=== PATIENT | female | born 1935 | race Caucasian/White ===

== ENCOUNTER → 2016-09-19 | Outpatient (CLI) | payer MEDICARE, OTHER | LOC: GMAB 10:53 | PROVIDERS: ATTEND Family Medicine | DX: C18.9 Malignant neoplasm of colon, unspecified (principal) ==

== ENCOUNTER → 2017-02-05 | Outpatient (CLI) | payer MEDICARE, OTHER | END | disposition home or self-care (01) | LOC: GMAB 10:16 | PROVIDERS: ATTEND Family Medicine | DX: I10 Essential (primary) hypertension (principal) ==

== ENCOUNTER → 2017-07-17 | Outpatient (CLI) | payer MEDICARE, OTHER | END | disposition home or self-care (01) | LOC: GMAB 10:28 | PROVIDERS: ATTEND Family Medicine | DX: C18.9 Malignant neoplasm of colon, unspecified (principal) ==

== ENCOUNTER → 2018-05-23 | Outpatient (CLI) | payer MEDICARE, OTHER | LOC: GMAE 14:39 | PROVIDERS: ATTEND Family Medicine | DX: I10 Essential (primary) hypertension (principal) ==

== ENCOUNTER 2019-10-19 17:52 | Emergency (ER) | payer MEDICARE, OTHER ==
[2019-10-19] MEDS: SODIUM CHLORIDE 0.9% 1000ML 1,000 ML IVS ONE ×2 (18:32→19:44)
[2019-10-19] MEDS: SODIUM CHLORIDE 0.9% (FLUSH) 10 ML SYG IV PRN (18:33)
--- NOTE | 2019-10-19 18:34 | RAD ---
EXAM DESCRIPTION: Chest,1 View CLINICAL HISTORY: 83 years Female sob COMPARISON: 04/16/2017. FINDINGS: The cardiomediastinal silhouette appears unremarkable. Atherosclerotic calcifications in the thoracic aorta. There are diffuse infiltrates in the lungs which could be from edema or an infectious process. No large pleural effusion is identified. No pneumothorax. IMPRESSION: There are diffuse infiltrates in the lungs which could be from edema or an infectious process. Clinical correlation and follow-up recommended. Electronically signed by: Luis Daniel Sánchez MD 10/19/2019 6:32 PM FEDERAL LAW CLERK
[2019-10-19] MEDS ORDERED: PIPERACILLIN/TAZOBACTAM 3.375 GM VIAL IVPB ONE (19:34)
[2019-10-19] MEDS ORDERED: SODIUM CHLORIDE 0.9% 100ML 100 ML IVPB ONE (19:34)
[2019-10-19] MEDS: PIPERACILLIN/TAZOBACTAM 3.375 GM in SODIUM CHLORIDE 0.9% 100ML 100 ML IVPB ONE (19:44)
--- NOTE | 2019-10-19 19:59 | ED.PDOC ---
History of Present Illness - General Chief Complaint: Respiratory Problem Stated Complaint: shortness of breath Time Seen by Provider: 10/19/19 18:16 Source: patient, RN notes reviewed, Vital Signs reviewed, family - Daughter Exam Limitations: no limitations - History of Present Illness Initial Comments: Patient is an 83-year-old white female who presents with complaints of shortness of breath. Patient has had an unremitting cough for days. She is now coughing up blood. It is bright red in nature. Patient shortness of breath is been over 5 days, worsening and no noted swelling. Patient has a history of colon cancer that metastasized to her liver. She underwent chemotherapy and surgery and was considered free and clear cancer x4 years. Recently, it was noted the patient now had spots on her lungs which were presumed to be metastatic in nature. Timing/Duration: constant, getting worse, other - 5 days Severity: moderate Activities at Onset: none Possible Cause: no prior episodes, unknown cause Improving Factors: nothing Worsening Factors: movement Associated Symptoms: cough - With hemoptysis, weakness Respiratory Risk Factors: no cause identified Allergies/Adverse Reactions: Allergies NO KNOWN ALLERGY Allergy (Verified 10/19/19 18:38) Review of Systems - Review of Systems Constitutional: States: see HPI, weakness. Denies: chills, fever EENTM: States: no symptoms reported. Denies: blurred vision, double vision Respiratory: States: see HPI, cough, short of breath. Denies: wheezing Cardiology: States: no symptoms reported. Denies: chest pain, palpitations, syncope Gastrointestinal/Abdominal: States: no symptoms reported. Denies: abdominal pain, diarrhea, nausea, vomiting Genitourinary: States: no symptoms reported. Denies: dysuria, frequency, hematuria Musculoskeletal: States: no symptoms reported. Denies: back pain, joint pain, joint swelling, muscle pain, muscle stiffness Skin: States: no symptoms reported. Denies: change in color, rash Neurological: States: no symptoms reported. Denies: headache, numbness, tingling Endocrine: States: no symptoms reported Hematologic/Lymphatic: States: no symptoms reported All other Systems: Reviewed and Negative Past Medical History (General) - Patient Medical History Hx Stroke: No Hx Congestive Heart Failure: No Hx Diabetes: No Hx Cancer: Yes - Colon and Liver Surgical History: colectomy - Vaccination History Hx Influenza Vaccination: No Hx Pneumococcal Vaccination: No - Social History Hx Tobacco Use: Yes Family Medical History - Family History Mother Family History: Unknown Living Status: Unknown Physical Exam - Physical Exam General Appearance: Alert, Anxious, Frail, Well Developed, Well Groomed, Well Hydrated, Well Nourished Eyes, Ears, Nose, Throat Exam: PERRL/EOMI, pharynx normal, pale conjunctivae (R), pale conjunctivae (L) Neck: non-tender, full range of motion, supple, normal inspection Respiratory: chest non-tender, lungs clear, normal breath sounds, no respiratory distress, no accessory muscle use Cardiovascular/Chest: normal peripheral pulses, no edema, no gallop, no JVD, no murmur, tachycardia Peripheral Pulses: radial,right: 2+, radial,left: 2+ Gastrointestinal/Abdominal: normal bowel sounds, non tender Extremity: normal range of motion, non-tender, normal inspection, no pedal edema, no calf tenderness Neurologic: supply crib attendant II-XII nml as tested, no motor/sensory deficits, alert, normal mood/affect, oriented x 3 Skin Exam: warm/dry, pallor Lymphatic: no adenopathy Progress - Progress Progress: Differential diagnosis: Symptomatic anemia, acute VA, metastatic lung cancer, pneumonia among others. 10/19/19 20:03 Patient presented with shortness of breath. It is rather a mixed picture in regards to her ultimate diagnosis. Chest x-ray appears to be volume overloaded but her BNP is only in the 170s. The potential for pneumonia is there, but there is no white count which points away from pneumonia, but she does have a left shift with 84.6% neutrophils. Additionally patient has an elevated lactic acid at 3.5 and no other source for possible infection except the pneumonia. Additionally patient has new onset renal failure with a BUN of 50 and a creatinine 3.0. After discussion with the patient and her daughter, plan on transfer of patient to [place] for further care. I did discuss this with Dr.Al Orozco, the hospitalist who accepts the patient for transfer. The patient and her daughter voiced understanding and agreement with the plan of care. Patient was given 2 L of normal saline here as well as a dose of Zosyn. Luis Daniel Bush M.D. #[id number] - Results/Orders Results/Orders: EXAM DESCRIPTION: Chest,1 View CLINICAL HISTORY: 83 years Female sob COMPARISON: 04/16/2017. FINDINGS: The cardiomediastinal silhouette appears unremarkable. Atherosclerotic calcifications in the thoracic aorta. There are diffuse infiltrates in the lungs which could be from edema or an infectious process. No large pleural effusion is identified. No pneumothorax. IMPRESSION: There are diffuse infiltrates in the lungs which could be from edema or an infectious process. Clinical correlation and follow-up recommended. Electronically signed by: Luis Daniel Sánchez MD 10/19/2019 6:32 PM ADMITTING MANAGER 10/19/19 18:16 Telemetry .ONCE Sodium Chloride 0.9% (Flush) [Saline Flush Syringe] 10 ml IV PRN PRN Pulse Oximetry Assessment DAILY 10/19/19 18:30 EKG STAT 10/19/19 19:00 BLOOD CULTURE Stat 10/19/19 19:32 Piperacillin/Tazobactam [Zosyn] 3.375 gm Sodium Chloride 0.9% 100Ml [NS (NACL 0.9%) 100ml] 100 ml IVPB ONCE Sodium Chloride 0.9% 1000ML [Ns 1000 ml] 1,000 ml IVS ONCE 10/20/19 09:00 Pulse Ox Daily Laboratory Results - last 24 hr 10/19/19 10/19/19 10/19/19 18:17 18:27 18:27 WBC 8.5 RBC 2.82 L Hgb 9.1 L Hct 27.8 L MCV 98.5 MCH 32.2 H MCHC 32.7 L RDW 20.2 H Plt Count 185 MPV 10.3 Absolute Neuts (auto) 7.40 H Absolute Lymphs (auto) 0.70 L Absolute Monos (auto) 0.30 Absolute Eos (auto) 0.00 Absolute Basos (auto) 0.10 Neutrophils % 86.4 H Lymphocytes % 8.7 L Monocytes % 4.1 Eosinophils % 0.0 L Basophils % 0.8 Normal RBC Morphology 3+aniso PT INR PTT (SP) Sodium 132 L Potassium 4.1 Chloride 102 Carbon Dioxide 16 L Anion Gap 18.1 H BUN 50 H Creatinine 3.00 H BUN/Creatinine Ratio 16.7 Random Glucose 195 H Serum Osmolality 283.2 Lactic Acid Calcium 8.1 L Total Bilirubin 1.1 H AST 51 H ALT 21 Alkaline Phosphatase 50 B-Natriuretic Peptide 170.0 H Serum Total Protein 5.8 L Albumin 2.7 L Globulin 3.1 Albumin/Globulin Ratio 0.9 L Patient ABO/Rh O POSITIVE Antibody Screen Negative 10/19/19 10/19/19 18:27 18:27 WBC RBC Hgb Hct MCV MCH MCHC RDW Plt Count MPV Absolute Neuts (auto) Absolute Lymphs (auto) Absolute Monos (auto) Absolute Eos (auto) Absolute Basos (auto) Neutrophils % Lymphocytes % Monocytes % Eosinophils % Basophils % Normal RBC Morphology PT 11.7 H INR 1.18 H PTT (SP) 25.1 Sodium Potassium Chloride Carbon Dioxide Anion Gap BUN Creatinine BUN/Creatinine Ratio Random Glucose Serum Osmolality Lactic Acid 3.9 H* Calcium Total Bilirubin AST ALT Alkaline Phosphatase B-Natriuretic Peptide Serum Total Protein Albumin Globulin Albumin/Globulin Ratio Patient ABO/Rh Antibody Screen EKG performed on 19 October 2019 at 1830 hrs.: Sinus tachycardia at 101 bpm, cannot rule out an anterior infarct, age indeterminate, abnormal EKG. No other EKGs for comparison. Departure - Departure Clinical Impression: Sepsis Qualifiers: Sepsis type: sepsis due to unspecified organism Sepsis acute organ dysfunction status: with acute organ dysfunction Severe sepsis acute organ dysfunction type: acute renal failure Acute renal failure type: unspecified Severe sepsis shock status: without septic shock Qualified Code(s): A41.9 - Sepsis, unspecified organism; R65.20 - Severe sepsis without septic shock; N17.9 - Acute kidney failure, unspecified Pneumonia Qualifiers: Pneumonia type: due to unspecified organism Laterality: bilateral Lung location: unspecified part of lung Qualified Code(s): J18.9 - Pneumonia, unspecified organism Renal failure Qualifiers: Renal failure chronicity: acute Acute renal failure type: unspecified Qualified Code(s): N17.9 - Acute kidney failure, unspecified Anemia Qualifiers: Anemia type: other cause Other causes of anemia: other cause, not classified Qualified Code(s): D64.89 - Other specified anemias Time of Disposition: 20:09 Disposition: Transfer to Hospital Condition: Fair Referrals: ANA ROSA ESCOBAR MD [Primary Care Provider] - 1-2 Weeks Critical Care Note - Critical Care Note Total Time (mins): 45 Transfer to Outside Facility - Transfer Information Decision to Transfer Date: 10/19/19 Decision to Transfer Time: 19:00 Reason for Transfer: specialized care not available Accepting Facility: [facility]
[2019-10-19 22:33] VITALS: TEMP 98.9
[2019-10-19 23:54] VITALS: BP 182/79; O2SAT 90
== END 2019-10-19 23:50 | disposition short-term general hospital (02) ==
LOC: ER 17:52
DX: R65.20 Severe sepsis without septic shock (principal); N17.9 Acute kidney failure, unspecified; J18.9 Pneumonia, unspecified organism; D64.89 Other specified anemias; R04.2 Hemoptysis; R00.0 Tachycardia, unspecified; Z85.038 Personal history of other malignant neoplasm of large intestine; Z85.05 Personal history of malignant neoplasm of liver; Z92.21 Personal history of antineoplastic chemotherapy; Z87.891 Personal history of nicotine dependence
CPT/HCPCS: 36415; 71045; 80053; 83605; 83880; 85025; 85610; 85730; 86850; 86900; 86901; 87040; 93005; J2543; J7030; J7050